=== PATIENT | female | born 2000 | race Caucasian/White ===

== ENCOUNTER 2022-10-10 13:08 | Emergency (ER) | payer SELFPAY ==
[2022-10-10 14:01] VITALS: BP 109/61; PULSE 82; RESP 18; BMI 28.3
[2022-10-10] MEDS ORDERED: LACTATED RINGERS SOLUTION 1000 ML INFUS.BAG IV ONE (14:06)
[2022-10-10 14:15] VITALS: TEMP 97.8
[2022-10-10] MEDS ORDERED: KETOROLAC TROMETHAMINE 15 MG/ML VIAL IVPUSH ONE (14:48)
[2022-10-10] MEDS ORDERED: METOCLOPRAMIDE HCL INJECTION 10 MG/2 ML VIAL IVPUSH ONE (14:48)
[2022-10-10] MEDS ORDERED: METOCLOPRAMIDE HCL INJECTION 10 MG/2 ML VIAL ONE (15:08)
[2022-10-10] MEDS ORDERED: KETOROLAC TROMETHAMINE 15 MG/ML VIAL ONE (15:08)
[2022-10-10 15:46] LABS: BASO % 0.5 % (0-2.0); EOS % 4.4 % (0-4.5); HEMATOCRIT 41.1 % (32.4-45.2); HEMOGLOBIN 13.6 GM/dL (10.7-15.3); LYMPH % 25.2 % (8-40); MCH 28.8 pg (25.7-33.7); MEAN CELL VOLUME 87.4 fl (80-96); MEAN PLT VOLUME 9.2 fl (7.5-11.1); MONO % 4.5 % (3.8-10.2); NEUT % 65.4 % (42.8-82.8); PLATELET COUNT 302 10^3/uL (134-434); RBC 4.71 M/mm3 (3.60-5.2); RDW 13.3 % (11.6-15.6); WHITE BLOOD COUNT 7.2 K/mm3 (4.0-10.0)
[2022-10-10 16:15] LABS: CALCIUM 9.4 mg/dL (8.5-10.1)
[2022-10-10 16:16] LABS: ALBUMIN 3.9 g/dl (3.4-5.0); BLOOD UREA NITROGEN 7.8 mg/dL (7-18)
[2022-10-10 16:19] LABS: CREATININE 0.5 mg/dL (0.55-1.3)
[2022-10-10 16:20] LABS: BILIRUBIN,TOTAL 0.3 mg/dL (0.2-1); TOT PROT 7.4 g/dl (6.4-8.2)
== END 2022-10-10 17:51 | disposition home or self-care (01) ==
LOC: JER 13:08
PROC: 3E0333Z Introduction of Anti-inflammatory into Peripheral Vein, Percutaneous Approach (ICD-10-PCS; principal; 2022-10-10)
PROC: 3E033GC Introduction of Other Therapeutic Substance into Peripheral Vein, Percutaneous Approach (ICD-10-PCS; 2022-10-10)
DX: R51.9 Headache, unspecified (principal)
CPT/HCPCS: 0241U-QW; 36415; 70450-TC; 80053; 84703; 85025; 99284-25

== ENCOUNTER 2023-01-20 20:16 | Inpatient (IN) | payer OTHER ==
[2023-01-20] MEDS ORDERED: ALBUTEROL SO4 2.5/IPRATROPIUM 0.5 INH SOL 3 ML VIAL.NEB. NEB ONE ×4 (20:28→22:31)
[2023-01-20] MEDS ORDERED: MAGNESIUM SULF 50% (8.12 MEQ/2 ML-1 GM VIAL) IVPB ONE (20:31)
[2023-01-20] MEDS ORDERED: methylPREDNISolone NA SUCC 125 MG/2 ML VIAL IVPB ONE (20:31)
[2023-01-20] MEDS ORDERED: methylPREDNISolone NA SUCC 125 MG/2 ML VIAL ONE (21:05)
[2023-01-20] MEDS ORDERED: MAGNESIUM SULFATE IN WATER 2 GM/50 ML IVPB IVPB ONE (21:05)
[2023-01-20 22:10] LABS: BASO % 0.4 % (0-2.0); EOS % 4.3 % (0-4.5); HEMATOCRIT 38.3 % (32.4-45.2); HEMOGLOBIN 13.2 GM/dL (10.7-15.3); LYMPH % 15.8 % (8-40); MCH 28.9 pg (25.7-33.7); MCHC 34.6 g/dl (32.0-36.0); MEAN CELL VOLUME 83.5 fl (80-96); MEAN PLT VOLUME 8.6 fl (7.5-11.1); NEUT % 74.5 % (42.8-82.8); PLATELET COUNT 262 10^3/uL (134-434); RBC 4.59 M/mm3 (3.60-5.2); RDW 13.6 % (11.6-15.6)
[2023-01-20 22:24] LABS: CHLORIDE 107 mmol/L (98-107); SODIUM 138 mmol/L (136-145)
[2023-01-20 22:26] LABS: CALCIUM 8.4 mg/dL (8.5-10.1)
[2023-01-20 22:27] LABS: ALBUMIN 3.7 g/dl (3.4-5.0); BLOOD UREA NITROGEN 6.3 mg/dL (7-18); CO2 22 mmol/L (21-32); GLUCOSE,RANDOM 125 mg/dL (74-106)
[2023-01-20 22:30] LABS: CREATININE 0.6 mg/dL (0.55-1.3); SGOT/AST 19 U/L (15-37); SGPT/ALT 25 U/L (13-61)
[2023-01-20 22:31] LABS: BILIRUBIN,TOTAL 0.4 mg/dL (0.2-1)
[2023-01-20 22:32] LABS: TOT PROT 7.2 g/dl (6.4-8.2)
[2023-01-20 22:33] LABS: ALK PHOS 131 U/L (45-117)
[2023-01-20] MEDS ORDERED: ALBUTEROL SO4 0.083% IH SOL 2.5 MG/3 ML VIAL.NEB. NEB ONE ×2 (22:33→22:36)
[2023-01-20] MEDS: ALBUTEROL SO4 0.083% IH SOL 2.5 MG/3 ML VIAL.NEB. NEB SCH ×4 (22:36→23:15)
[2023-01-20 22:40] LABS: ANION GAP 8 MMOL/L (8-16)
[2023-01-20] MEDS ORDERED: POTASSIUM CHLORIDE ORAL LIQUID 20 MEQ/15 ML PO ONE (22:44)
[2023-01-20] MEDS ORDERED: POTASSIUM CHLORIDE ORAL LIQUID 20 MEQ/15 ML ONE (23:16)
[2023-01-20] MEDS ORDERED: KCL 10 MEQ IVPB 10 MEQ/100 ML INFUS.BAG IVPB ONE (23:16)
[2023-01-20] MEDS: KCL 10 MEQ IVPB 10 MEQ/100 ML INFUS.BAG IVPB SCH (23:26)
[2023-01-21 00:25] LABS: PHOSPHOROUS 2.4 mg/dL (2.5-4.9)
[2023-01-21] MEDS ORDERED: ALBUTEROL SO4 HFA INHALER IH PRN (00:28)
[2023-01-21 00:45] LABS: MAGNESIUM 1.8 mg/dL (1.8-2.4)
[2023-01-21 00:48] LABS: URINE APPEARANCE CLEAR; URINE BILIRUBIN NEGATIVE (NEGATIVE); URINE COLOR YELLOW; URINE GLUCOSE (UA) 2+ (NEGATIVE); URINE KETONE 2+ (NEGATIVE); URINE LEUK ESTERASE NEGATIVE (NEGATIVE); URINE NITRITE NEGATIVE (NEGATIVE); URINE PROTEIN NEGATIVE (NEGATIVE); URINE UROBILINOGEN 0.2 mg/dL (0.2-1.0)
[2023-01-21] MEDS ORDERED: KCL 10 MEQ IVPB 10 MEQ/100 ML INFUS.BAG IVPB ONE (01:05)
[2023-01-21] MEDS: KCL 10 MEQ IVPB 10 MEQ/100 ML INFUS.BAG IVPB SCH ×2 (01:30→02:30)
[2023-01-21] MEDS ORDERED: NAPH,MB-DB/K PH,MBDB POWDER PACKET ONE (01:33)
[2023-01-21] MEDS ORDERED: guaiFENesin 200 MG/10 ML 10 ML UNIT-DOSE CUPS PO ONE (01:38)
[2023-01-21] MEDS ORDERED: guaiFENesin/CODEINE 10 ML UNIT-DOSE CUPS ONE (01:42)
[2023-01-21] MEDS: NAPH,MB-DB/K PH,MBDB POWDER PACKET PO SCH ×3 (02:31→21:56)
[2023-01-21 03:42] VITALS: BMI 28.9
[2023-01-21 07:45] LABS: HEMOGLOBIN 12.8 GM/dL (10.7-15.3); MCH 29.2 pg (25.7-33.7); MCHC 34.7 g/dl (32.0-36.0); MEAN CELL VOLUME 83.9 fl (80-96); MEAN PLT VOLUME 8.7 fl (7.5-11.1); PLATELET COUNT 271 10^3/uL (134-434); RBC 4.41 M/mm3 (3.60-5.2); RDW 13.7 % (11.6-15.6)
[2023-01-21 07:59] LABS: BLOOD UREA NITROGEN 5.3 mg/dL (7-18); CALCIUM 8.8 mg/dL (8.5-10.1); MAGNESIUM 2.4 mg/dL (1.8-2.4)
[2023-01-21 08:00] LABS: ALBUMIN 3.7 g/dl (3.4-5.0)
[2023-01-21] MEDS ORDERED: IPRATROPIUM BR 0.02% 0.5 MG/2.5 ML VIAL.NEB. NEB PRN (08:00)
[2023-01-21 08:04] LABS: BILIRUBIN,TOTAL 0.4 mg/dL (0.2-1); CREATININE 0.6 mg/dL (0.55-1.3); PHOSPHOROUS 2.3 mg/dL (2.5-4.9); TOT PROT 7.4 g/dl (6.4-8.2)
[2023-01-21] MEDS: LEVALBUTEROL HCL 0.31 MG/3 ML VIAL.NEB IH SCH ×3 (08:33→20:24)
[2023-01-21] MEDS: ENOXAPARIN NA (PORCINE) 40 MG/0.4 ML DISP.SYRIN SQ SCH (10:06)
[2023-01-21] MEDS ORDERED: ACETAMINOPHEN 325 MG TABLET (FP) PO ONE ×2 (10:55→18:20)
[2023-01-21] MEDS: BUDESONIDE/FORMETEROL FUMARATE 80/4.5 mcg INHALER IH SCH (11:13)
[2023-01-21] MEDS: guaiFENesin 200 MG/10 ML 10 ML UNIT-DOSE CUPS PO PRN (11:13)
[2023-01-21] MEDS: predniSONE 20 MG TABLET (UD) PO SCH (21:56)
[2023-01-22 07:21] LABS: HEMATOCRIT 37.6 % (32.4-45.2); HEMOGLOBIN 13.1 GM/dL (10.7-15.3); MCH 29.4 pg (25.7-33.7); MCHC 34.9 g/dl (32.0-36.0); MEAN CELL VOLUME 84.4 fl (80-96); MEAN PLT VOLUME 8.8 fl (7.5-11.1); PLATELET COUNT 273 10^3/uL (134-434); RBC 4.45 M/mm3 (3.60-5.2); RDW 14.2 % (11.6-15.6); WHITE BLOOD COUNT 9.2 K/mm3 (4.0-10.0)
[2023-01-22 07:49] LABS: ALBUMIN 3.6 g/dl (3.4-5.0); BLOOD UREA NITROGEN 9.6 mg/dL (7-18); CALCIUM 8.8 mg/dL (8.5-10.1)
[2023-01-22 07:52] LABS: CREATININE 0.5 mg/dL (0.55-1.3); MAGNESIUM 2.2 mg/dL (1.8-2.4); PHOSPHOROUS 3.4 mg/dL (2.5-4.9)
[2023-01-22 07:54] LABS: TOT PROT 7.5 g/dl (6.4-8.2)
[2023-01-22 07:55] LABS: BILIRUBIN,TOTAL 0.3 mg/dL (0.2-1)
[2023-01-22] MEDS: LEVALBUTEROL HCL 0.31 MG/3 ML VIAL.NEB IH SCH ×3 (08:00→20:19)
[2023-01-22] MEDS: BUDESONIDE/FORMETEROL FUMARATE 80/4.5 mcg INHALER IH SCH (09:38)
[2023-01-22] MEDS: NAPH,MB-DB/K PH,MBDB POWDER PACKET PO SCH (09:38)
[2023-01-22] MEDS: predniSONE 20 MG TABLET (UD) PO SCH (09:38)
[2023-01-22] MEDS: ENOXAPARIN NA (PORCINE) 40 MG/0.4 ML DISP.SYRIN SQ SCH (09:38)
[2023-01-22 15:28] VITALS: TEMP 98.2
[2023-01-22] MEDS: guaiFENesin 200 MG/10 ML 10 ML UNIT-DOSE CUPS PO PRN (16:06)
[2023-01-22 18:16] VITALS: BP 122/65; PULSE 88; RESP 20
== END 2023-01-22 20:23 | disposition home or self-care (01) | DRG 141 ==
LOC: JER 20:16 → JERBED 23:50 → INTOOBSV 23:50 → J4W 01-21 02:21 → OBSVTOIN 01-21 13:46
PROVIDERS: ADMIT Internal Medicine; ATTEND Internal Medicine
DX: J45.41 Moderate persistent asthma with (acute) exacerbation (principal); E87.6 Hypokalemia; E83.39 Other disorders of phosphorus metabolism; D72.829 Elevated white blood cell count, unspecified; R73.9 Hyperglycemia, unspecified
CPT/HCPCS: 0241U-QW; 36415; 71045-TC-FY; 71250-TC; 80053; 81003; 83036; 83735; 84100; 84703; 85025; 85027; 87633; 93005; 93010; 94150; 99285-25; G0378

== ENCOUNTER 2023-07-27 19:22 | Observation (INO) | payer OTHER ==
[2023-07-27] MEDS ORDERED: ACETAMINOPHEN 1000 MG/100 ML BAG IVPB ONE (21:04)
[2023-07-27] MEDS ORDERED: SODIUM CHLORIDE 0.9% 1000 ML INFUS.BAG IV ONE (21:04)
[2023-07-27] MEDS ORDERED: METOCLOPRAMIDE HCL INJECTION 10 MG/2 ML VIAL IVPUSH ONE (21:04)
[2023-07-27] MEDS ORDERED: ACETAMINOPHEN INJECTION 100 ML IVPB ONE (21:11)
[2023-07-27] MEDS ORDERED: METOCLOPRAMIDE HCL INJECTION 10 MG/2 ML VIAL ONE (21:11)
[2023-07-27 21:31] LABS: BASO % 0.2 % (0-2.0); EOS % 0.2 % (0-4.5); HEMATOCRIT 43.1 % (32.4-45.2); HEMOGLOBIN 15.1 GM/dL (10.7-15.3); MCHC 34.9 g/dl (32.0-36.0); MONO % 4.5 % (3.8-10.2); NEUT % 89.1 % (42.8-82.8); PLATELET COUNT 285 10^3/uL (134-434); RBC 5.19 M/mm3 (3.60-5.2); RDW 14.6 % (11.6-15.6); WHITE BLOOD COUNT 19.2 K/mm3 (4.0-10.0)
[2023-07-27 21:34] LABS: EPI CELLS 14 /uL (0-25.1); HYALINE CASTS 1 /uL (0-3.1); PH,URINE 6.5 (5.0-8.0); URINE APPEARANCE CLEAR; URINE BACTERIA 278 /uL (0-1359); URINE BILIRUBIN NEGATIVE (NEGATIVE); URINE COLOR DK YELLOW; URINE GLUCOSE (UA) NEGATIVE (NEGATIVE); URINE KETONE 3+ (NEGATIVE); URINE LEUK ESTERASE TRACE (NEGATIVE); URINE NITRITE NEGATIVE (NEGATIVE); URINE PROTEIN NEGATIVE (NEGATIVE); URINE WBC 11 /uL (0-25.8)
[2023-07-27 21:42] LABS: POTASSIUM 3.6 mmol/L (3.5-5.1)
[2023-07-27 21:47] LABS: ALBUMIN 4.3 g/dl (3.4-5.0); BLOOD UREA NITROGEN 8.3 mg/dL (7-18); CALCIUM 9.3 mg/dL (8.5-10.1)
[2023-07-27 21:50] LABS: BILIRUBIN,TOTAL 0.9 mg/dL (0.2-1); CREATININE 0.9 mg/dL (0.55-1.3)
[2023-07-27 21:53] LABS: TOT PROT 8.6 g/dl (6.4-8.2)
[2023-07-27] MEDS ORDERED: CEFTRIAXONE 1 GM in DEXTROSE 5%-WATER - 100 ML IVPB ONE (23:53)
[2023-07-28] MEDS ORDERED: CEFTRIAXONE 1 GM/50 ML BAG ONE (00:06)
[2023-07-28] MEDS ORDERED: SODIUM CHLORIDE 1,000 ML IV STA ×3 (05:35→08:47)
[2023-07-28] MEDS ORDERED: SODIUM CHLORIDE 2,000 ML IV STA (05:41)
[2023-07-28] MEDS ORDERED: ACETAMINOPHEN 325 MG TABLET (FP) PO ONE (05:43)
[2023-07-28] MEDS ORDERED: SODIUM CHLORIDE 1,000 ML IV SCH ×2 (05:45→07:45)
[2023-07-28] MEDS: ALBUTEROL SO4 2.5/IPRATROPIUM 0.5 INH SOL 3 ML VIAL.NEB. NEB SCH ×4 (07:58→20:40)
[2023-07-28] MEDS ORDERED: ALBUTEROL SO4 2.5/IPRATROPIUM 0.5 INH SOL 3 ML VIAL.NEB. NEB ONE (08:17)
[2023-07-28] MEDS ORDERED: methylPREDNISolone NA SUCC 40 MG/1 ML VIAL ONE (08:17)
[2023-07-28] MEDS ORDERED: AZITHROMYCIN IVPB 500 MG/250 ML BAG IVPB ONE (08:17)
[2023-07-28] MEDS: methylPREDNISolone NA SUCC 40 MG/1 ML VIAL IVPUSH SCH ×3 (08:31→22:06)
[2023-07-28] MEDS: AZITHROMYCIN IVPB 500 MG/250 ML BAG IVPB SCH (09:25)
[2023-07-28] MEDS: BUDESONIDE/FORMETEROL FUMARATE 80/4.5 mcg INHALER IH SCH ×2 (11:17→22:05)
[2023-07-28 12:52] VITALS: BMI 31.1
[2023-07-28 21:01] LABS: HEMATOCRIT 35.2 % (32.4-45.2); HEMOGLOBIN 12.2 GM/dL (10.7-15.3); MCHC 34.5 g/dl (32.0-36.0); MEAN CELL VOLUME 83.9 fl (80-96); MEAN PLT VOLUME 9.1 fl (7.5-11.1); PLATELET COUNT 209 10^3/uL (134-434); RDW 14.5 % (11.6-15.6); WHITE BLOOD COUNT 13.4 K/mm3 (4.0-10.0)
[2023-07-29] MEDS ORDERED: CEFTRIAXONE 1 GM in DEXTROSE 5%-WATER - 50 ML IVPB SCH
[2023-07-29] MEDS: methylPREDNISolone NA SUCC 40 MG/1 ML VIAL IVPUSH SCH ×3 (04:01→15:16)
[2023-07-29] MEDS: ALBUTEROL SO4 2.5/IPRATROPIUM 0.5 INH SOL 3 ML VIAL.NEB. NEB SCH ×3 (07:57→16:00)
[2023-07-29] MEDS ORDERED: ACETAMINOPHEN 1000 MG/100 ML BAG IVPB PRN (08:38)
[2023-07-29] MEDS: AZITHROMYCIN IVPB 500 MG/250 ML BAG IVPB SCH (09:08)
[2023-07-29] MEDS: BUDESONIDE/FORMETEROL FUMARATE 80/4.5 mcg INHALER IH SCH (09:10)
[2023-07-29 09:17] LABS: HEMATOCRIT 36.8 % (32.4-45.2); HEMOGLOBIN 12.2 GM/dL (10.7-15.3); MCH 28.5 pg (25.7-33.7); MCHC 33.2 g/dl (32.0-36.0); MEAN CELL VOLUME 85.8 fl (80-96); MEAN PLT VOLUME 8.9 fl (7.5-11.1); PLATELET COUNT 218 10^3/uL (134-434); RBC 4.29 M/mm3 (3.60-5.2); RDW 14.6 % (11.6-15.6); WHITE BLOOD COUNT 17.5 K/mm3 (4.0-10.0)
[2023-07-29 09:42] LABS: POTASSIUM 3.8 mmol/L (3.5-5.1)
[2023-07-29 09:44] VITALS: RESP 18
[2023-07-29 09:45] LABS: CALCIUM 8.7 mg/dL (8.5-10.1)
[2023-07-29 09:47] LABS: BLOOD UREA NITROGEN 8.1 mg/dL (7-18); MAGNESIUM 2.2 mg/dL (1.8-2.4)
[2023-07-29 09:49] LABS: CREATININE 0.7 mg/dL (0.55-1.3); PHOSPHOROUS 2.4 mg/dL (2.5-4.9)
[2023-07-29 09:50] LABS: BILIRUBIN,TOTAL 0.5 mg/dL (0.2-1); TOT PROT 6.9 g/dl (6.4-8.2)
[2023-07-29 10:02] LABS: ALBUMIN 3.1 g/dl (3.4-5.0)
[2023-07-29 10:08] LABS: ANISOCYTOSIS 0; HELMET CELLS 0; HOWELL-JOLLY BODIES 0; MACROCYTOSIS 0; OVALOCYTE 0; ROULEAU 0; SICKELED CELLS 0; TARGET CELLS 0; TEAR DROP CELLS 0; TOXIC GRANULATION 0
[2023-07-29 15:01] VITALS: BP 115/67; PULSE 93; TEMP 97.3
== END 2023-07-29 17:10 | disposition home or self-care (01) ==
LOC: JERFT 19:22 → JER 19:22 → JERBED 23:59 → J7W 07-28 11:35
PROVIDERS: ADMIT Internal Medicine
PROC: 3E0F7GC Introduction of Other Therapeutic Substance into Respiratory Tract, Via Natural or Artificial Opening (ICD-10-PCS; principal; 2023-07-27)
PROC: 3E033NZ Introduction of Analgesics, Hypnotics, Sedatives into Peripheral Vein, Percutaneous Approach (ICD-10-PCS; 2023-07-27)
PROC: 3E03329 Introduction of Other Anti-infective into Peripheral Vein, Percutaneous Approach (ICD-10-PCS; 2023-07-27)
PROC: 3E033GC Introduction of Other Therapeutic Substance into Peripheral Vein, Percutaneous Approach (ICD-10-PCS; 2023-07-27)
PROC: 3E0337Z Introduction of Electrolytic and Water Balance Substance into Peripheral Vein, Percutaneous Approach (ICD-10-PCS; 2023-07-27)
DX: J45.41 Moderate persistent asthma with (acute) exacerbation (principal); J18.9 Pneumonia, unspecified organism; E86.0 Dehydration; G43.909 Migraine, unspecified, not intractable, without status migrainosus; R07.0 Pain in throat; R05.9 Cough, unspecified; R50.9 Fever, unspecified; R53.1 Weakness
CPT/HCPCS: 0241U-QW; 36415; 71046-TC-FY; 71250-TC; 74176-TC; 80053; 81003; 82150; 83605; 83690; 83735; 84100; 84703; 85025; 85027; 87040; 87086; 93005; 93010; 94640; 96361; 96365; 96367; 96368; 96375; 96376; 99285-25; G0378

== ENCOUNTER 2023-11-01 16:04 | Emergency (ER) | payer OTHER ==
[2023-11-01 16:10] VITALS: BP 108/67; PULSE 92; RESP 18; TEMP 97.6; BMI 30.9
[2023-11-01] MEDS ORDERED: ACETAMINOPHEN 500 MG TABLET (FP) PO ONE (18:14)
[2023-11-01] MEDS ORDERED: ACETAMINOPHEN 500 MG TABLET (FP) ONE (18:19)
[2023-11-01 18:21] LABS: HCG,QUALITATIVE URINE Negative
[2023-11-01 18:22] LABS: EPI CELLS 15 /uL (0-25.1); HYALINE CASTS 1 /uL (0-3.1); PH,URINE 6.5 (5.0-8.0); URINE APPEARANCE CLEAR; URINE BACTERIA >9,000 /uL (0-1359); URINE BILIRUBIN NEGATIVE (NEGATIVE); URINE COLOR YELLOW; URINE GLUCOSE (UA) NEGATIVE (NEGATIVE); URINE KETONE NEGATIVE (NEGATIVE); URINE LEUK ESTERASE 2+ (NEGATIVE); URINE NITRITE NEGATIVE (NEGATIVE); URINE PROTEIN TRACE (NEGATIVE); URINE RBC 23 /uL (0-23.9); URINE WBC 744 /uL (0-25.8)
[2023-11-01] MEDS ORDERED: SULFAMETHOXAZOLE/TRIMETHOPRIM 800MG/160MG D.S. TABLET PO ONE (19:59)
[2023-11-01] MEDS ORDERED: IBUPROFEN 600 MG TABLET (FP) PO ONE ×2 (20:02→20:10)
[2023-11-01] MEDS ORDERED: SULFAMETHOXAZOLE/TRIMETHOPRIM 800MG/160MG D.S. TABLET ONE (20:10)
== END 2023-11-01 20:20 | disposition home or self-care (01) ==
LOC: JER 16:04 → JERFT 16:04
DX: R30.0 Dysuria (principal); M54.9 Dorsalgia, unspecified; N39.0 Urinary tract infection, site not specified
CPT/HCPCS: 36415; 81003; 84703; 87086; 87186; 87491; 87591; 99283-25

== ENCOUNTER 2024-08-06 09:03 | Emergency (ER) | payer SELFPAY ==
[2024-08-06 09:11] VITALS: BP 108/68; PULSE 87; RESP 20; TEMP 97.8; BMI 26.5
[2024-08-06] MEDS ORDERED: DEXAMETHASONE SOD PHOSPHATE 10 MG/1 ML VIAL ONE ×2 (09:55→09:57)
[2024-08-06] MEDS ORDERED: ALBUTEROL SO4 2.5/IPRATROPIUM 0.5 INH SOL 3 ML VIAL.NEB. NEB ONE ×3 (09:55→11:29)
[2024-08-06] MEDS: DEXAMETHASONE SOD PHOSPHATE 10 MG/1 ML VIAL IM ONE (09:57)
[2024-08-06] MEDS: ALBUTEROL SO4 2.5/IPRATROPIUM 0.5 INH SOL 3 ML VIAL.NEB. NEB ONE ×2 (09:57→11:52)
[2024-08-06] MEDS ORDERED: MONTELUKAST NA 10 MG TABLET ONE ×2 (10:51→10:54)
[2024-08-06] MEDS: MONTELUKAST NA 10 MG TABLET PO ONE ×2 (11:13→11:16)
== END 2024-08-06 12:36 | disposition home or self-care (01) ==
LOC: JER 09:03
PROC: 3E023GC Introduction of Other Therapeutic Substance into Muscle, Percutaneous Approach (ICD-10-PCS; principal; 2024-08-06)
PROC: 3E0F7GC Introduction of Other Therapeutic Substance into Respiratory Tract, Via Natural or Artificial Opening (ICD-10-PCS; 2024-08-06)
PROC: 3E0F7GC Introduction of Other Therapeutic Substance into Respiratory Tract, Via Natural or Artificial Opening (ICD-10-PCS; 2024-08-06)
DX: J45.901 Unspecified asthma with (acute) exacerbation (principal); R07.89 Other chest pain; R05.9 Cough, unspecified
CPT/HCPCS: 71046-TC-FY; 99284-25; J1100

== ENCOUNTER 2024-09-23 15:18 | Emergency (ER) | payer OTHER ==
[2024-09-23 15:27] VITALS: TEMP 98.5; BMI 29.2
[2024-09-23] MEDS ORDERED: ALBUTEROL SO4 2.5/IPRATROPIUM 0.5 INH SOL 3 ML VIAL.NEB. NEB PRN (15:44)
[2024-09-23] MEDS ORDERED: ALBUTEROL SO4 2.5/IPRATROPIUM 0.5 INH SOL 3 ML VIAL.NEB. NEB ONE (15:53)
[2024-09-23] MEDS ORDERED: predniSONE 10 MG TABLET (UD) ONE (15:54)
[2024-09-23] MEDS ORDERED: predniSONE 20 MG TABLET (UD) ONE (15:54)
[2024-09-23] MEDS: ALBUTEROL SO4 2.5/IPRATROPIUM 0.5 INH SOL 3 ML VIAL.NEB. NEB PRN (16:04)
[2024-09-23] MEDS: predniSONE 20 MG TABLET (UD) PO ONE (16:04)
[2024-09-23] MEDS: ALBUTEROL SO4 2.5/IPRATROPIUM 0.5 INH SOL 3 ML VIAL.NEB. NEB ONE (16:05)
[2024-09-23] MEDS ORDERED: ALBUTEROL SO4 0.083% IH SOL 2.5 MG/3 ML VIAL.NEB. NEB ONE (17:30)
[2024-09-23] MEDS ORDERED: MAGNESIUM SULF 50% (8.12 MEQ/2 ML-1 GM VIAL) ONE (17:30)
[2024-09-23] MEDS ORDERED: guaiFENesin/CODEINE 10 ML UNIT-DOSE CUPS ONE (17:34)
[2024-09-23] MEDS ORDERED: MAGNESIUM SULFATE IN WATER 2 GM/50 ML IVPB IVPB ONE (17:35)
[2024-09-23] MEDS: MAGNESIUM SULF 50% (8.12 MEQ/2 ML-1 GM VIAL) IVPB ONE (18:05)
[2024-09-23] MEDS: guaiFENesin 200 MG/10 ML 10 ML UNIT-DOSE CUPS PO ONE (18:05)
[2024-09-23] MEDS: ALBUTEROL SO4 0.083% IH SOL 2.5 MG/3 ML VIAL.NEB. NEB ONE (18:05)
[2024-09-23 18:18] LABS: BASO % 0.2 % (0-2.0); EOS % 12.6 % (0-4.5); HEMATOCRIT 40.9 % (32.4-45.2); HEMOGLOBIN 13.6 GM/dL (10.7-15.3); LYMPH % 14.4 % (8-40); MCH 28.5 pg (25.7-33.7); MCHC 33.2 g/dl (32.0-36.0); MEAN CELL VOLUME 85.9 fl (80-96); MEAN PLT VOLUME 8.8 fl (7.5-11.1); MONO % 3.7 % (3.8-10.2); NEUT % 69.1 % (42.8-82.8); PLATELET COUNT 245 10^3/uL (134-434); RBC 4.76 M/mm3 (3.60-5.2); RDW 13.9 % (11.6-15.6); WHITE BLOOD COUNT 8.7 K/mm3 (4.0-10.0)
[2024-09-23 18:19] LABS: VENOUS BASE EXCESS -1.6 mmol/L (-2-2); VENOUS O2 SATURATION 73.7 % (70-80); VENOUS PCO2 40.4 mmHg (38-52); VENOUS PH 7.38 (7.310-7.410)
[2024-09-23 18:37] LABS: POTASSIUM 3.4 mmol/L (3.5-5.1)
[2024-09-23 18:40] LABS: CALCIUM 9.1 mg/dL (8.5-10.1)
[2024-09-23 18:41] LABS: BLOOD UREA NITROGEN 6.6 mg/dL (7-18)
[2024-09-23 18:44] LABS: CREATININE 0.6 mg/dL (0.55-1.3)
[2024-09-23 18:47] LABS: BILIRUBIN,TOTAL 0.3 mg/dL (0.2-1); TOT PROT 7.7 g/dl (6.4-8.2)
[2024-09-23 19:32] LABS: HIV INTERPRETATION NEGATIVE (NEGATIVE)
[2024-09-23 20:38] VITALS: BP 102/70; PULSE 110; RESP 16
== END 2024-09-23 20:40 | disposition home or self-care (01) ==
LOC: JER 15:18
PROC: 3E033GC Introduction of Other Therapeutic Substance into Peripheral Vein, Percutaneous Approach (ICD-10-PCS; principal; 2024-09-23)
PROC: 3E0F7GC Introduction of Other Therapeutic Substance into Respiratory Tract, Via Natural or Artificial Opening (ICD-10-PCS; 2024-09-23)
DX: J45.901 Unspecified asthma with (acute) exacerbation (principal); R06.02 Shortness of breath; R05.9 Cough, unspecified; R50.9 Fever, unspecified; J02.9 Acute pharyngitis, unspecified; Z20.822 Contact with and (suspected) exposure to COVID-19
CPT/HCPCS: 0241U-QW; 36415; 71046-TC-FY; 80053; 82803; 84703; 85025; 86803; 87389; 99284-25

== ENCOUNTER 2024-12-17 18:46 | Inpatient (IN) | payer OTHER ==
[2024-12-17] MEDS ORDERED: DEXAMETHASONE SOD PHOSPHATE 4 MG/1 ML VIAL ONE ×2 (20:14→20:21)
[2024-12-17] MEDS ORDERED: ALBUTEROL SO4 2.5/IPRATROPIUM 0.5 INH SOL 3 ML VIAL.NEB. NEB ONE ×3 (20:14→23:15)
[2024-12-17] MEDS ORDERED: LORATADINE 10 MG TABLET ONE ×2 (20:14→20:21)
[2024-12-17] MEDS ORDERED: DEXAMETHASONE SOD PHOSPHATE 10 MG/1 ML VIAL ONE ×2 (20:14→20:23)
[2024-12-17] MEDS: ALBUTEROL SO4 2.5/IPRATROPIUM 0.5 INH SOL 3 ML VIAL.NEB. NEB ONE ×2 (20:23→23:14)
[2024-12-17] MEDS: DEXAMETHASONE SOD PHOSPHATE 10 MG/1 ML VIAL IM ONE (20:23)
[2024-12-17] MEDS: LORATADINE 10 MG TABLET PO ONE (20:23)
[2024-12-17] MEDS ORDERED: MAGNESIUM SULFATE IN WATER 2 GM/50 ML IVPB IVPB ONE (21:49)
[2024-12-17] MEDS: MAGNESIUM SULFATE IN WATER 2 GM/50 ML IVPB IVPB ONE (22:07)
[2024-12-18 01:28] LABS: HEMATOCRIT 38.3 % (32.4-45.2); MEAN CELL VOLUME 85.3 fl (80-96); MEAN PLT VOLUME 8.5 fl (7.5-11.1); PLATELET COUNT 248 10^3/uL (134-434); RBC 4.49 M/mm3 (3.60-5.2); WHITE BLOOD COUNT 8.4 K/mm3 (4.0-10.0)
[2024-12-18 01:42] LABS: POTASSIUM 3.4 mmol/L (3.5-5.1)
[2024-12-18 01:44] LABS: ALBUMIN 3.9 g/dl (3.4-5.0); BLOOD UREA NITROGEN 12.9 mg/dL (7-18); CALCIUM 8.7 mg/dL (8.5-10.1)
[2024-12-18 01:47] LABS: CREATININE 0.9 mg/dL (0.55-1.3)
[2024-12-18 01:49] LABS: BILIRUBIN,TOTAL 0.2 mg/dL (0.2-1); TOT PROT 7.4 g/dl (6.4-8.2)
[2024-12-18] MEDS ORDERED: ACETAMINOPHEN 325 MG TABLET (FP) ONE (01:51)
[2024-12-18] MEDS: ACETAMINOPHEN 325 MG TABLET (FP) PO ONE (02:03)
[2024-12-18 02:41] LABS: HIV INTERPRETATION NEGATIVE (NEGATIVE)
[2024-12-18 03:09] LABS: ANISOCYTOSIS 1+; MACROCYTOSIS 1+
[2024-12-18 03:10] VITALS: BMI 32.7
[2024-12-18] MEDS: ALBUTEROL SULFATE 0.021% (0.63 MG/3 ML) VIAL.NEB NEB SCH (04:00)
[2024-12-18] MEDS ORDERED: ALBUTEROL SO4 0.083% IH SOL 2.5 MG/3 ML VIAL.NEB. NEB PRN (04:26)
[2024-12-18] MEDS ORDERED: ALBUTEROL SULFATE 0.021% (0.63 MG/3 ML) VIAL.NEB NEB PRN ×2 (04:27→08:54)
[2024-12-18] MEDS: LORATADINE 10 MG TABLET PO SCH (05:34)
[2024-12-18] MEDS: methylPREDNISolone NA SUCC 40 MG/1 ML VIAL IVPUSH SCH ×3 (05:34→21:41)
[2024-12-18] MEDS: POTASSIUM CHLORIDE ORAL LIQUID 20 MEQ/15 ML PO ONE ×2 (05:34→05:47)
[2024-12-18] MEDS: MONTELUKAST NA 5 MG TAB.CHEW PO ONE (06:28)
[2024-12-18] MEDS: ALBUTEROL SO4 2.5/IPRATROPIUM 0.5 INH SOL 3 ML VIAL.NEB. NEB SCH (07:25)
[2024-12-18 09:39] LABS: HEMATOCRIT 38.9 % (32.4-45.2); HEMOGLOBIN 13.4 GM/dL (10.7-15.3); MCHC 34.4 g/dl (32.0-36.0); MEAN CELL VOLUME 84.4 fl (80-96); MEAN PLT VOLUME 8.8 fl (7.5-11.1); PLATELET COUNT 284 10^3/uL (134-434); RBC 4.61 M/mm3 (3.60-5.2); RDW 14.9 % (11.6-15.6); WHITE BLOOD COUNT 10.6 K/mm3 (4.0-10.0)
[2024-12-18] MEDS: ENOXAPARIN NA (PORCINE) 40 MG/0.4 ML DISP.SYRIN SQ SCH (09:39)
[2024-12-18] MEDS: ACETAMINOPHEN 325 MG TABLET (FP) PO PRN (09:41)
[2024-12-18 09:58] LABS: POTASSIUM 4.4 mmol/L (3.5-5.1)
[2024-12-18 10:02] LABS: CALCIUM 9.1 mg/dL (8.5-10.1)
[2024-12-18 10:03] LABS: BLOOD UREA NITROGEN 10.2 mg/dL (7-18)
[2024-12-18 10:06] LABS: BILIRUBIN,TOTAL 0.3 mg/dL (0.2-1); CREATININE 0.6 mg/dL (0.55-1.3); TOT PROT 7.8 g/dl (6.4-8.2)
[2024-12-18] MEDS: guaiFENesin/D-METHORPHAN HB 10 ML UNIT-DOSE CUPS PO PRN (18:48)
[2024-12-18] MEDS: MONTELUKAST NA 5 MG TAB.CHEW PO SCH (21:41)
[2024-12-19] MEDS: IBUPROFEN 400 MG TABLET (FP) PO PRN (07:20)
[2024-12-19] MEDS ORDERED: CODEINE SO4 30 MG TABLET PO PRN (11:20)
[2024-12-19] MEDS: BUDESONIDE/FORMETEROL FUMARATE 160/4.5 mcg INHALER IH ONE (13:20)
[2024-12-19] MEDS: FLUTICASONE PROP 0.05% 16 GM NASAL SPRAY NS SCH (23:01)
[2024-12-20 09:36] LABS: HEMATOCRIT 40.8 % (32.4-45.2); HEMOGLOBIN 13.1 GM/dL (10.7-15.3); MCH 27.8 pg (25.7-33.7); MCHC 32.1 g/dl (32.0-36.0); MEAN CELL VOLUME 86.4 fl (80-96); MEAN PLT VOLUME 8.8 fl (7.5-11.1); PLATELET COUNT 313 10^3/uL (134-434); RBC 4.72 M/mm3 (3.60-5.2); RDW 14.3 % (11.6-15.6); WHITE BLOOD COUNT 15.8 K/mm3 (4.0-10.0)
[2024-12-20 09:55] LABS: BLOOD UREA NITROGEN 15.9 mg/dL (7-18); CALCIUM 8.8 mg/dL (8.5-10.1)
[2024-12-20 09:56] LABS: POTASSIUM 4.1 mmol/L (3.5-5.1)
[2024-12-20 09:59] LABS: CREATININE 0.6 mg/dL (0.55-1.3)
[2024-12-20 13:51] VITALS: BP 103/66; PULSE 85; RESP 18; TEMP 97.2
[2024-12-20] MEDS: ACETAMINOPHEN/CAFFEINE/BUTALBITAL 1 TAB PO ONE (14:22)
== END 2024-12-20 18:57 | disposition home or self-care (01) | DRG 141 ==
LOC: JER 18:46 → JERBED 23:01 → J6S 12-18 02:24 → OBSVTOIN 12-18 03:05
PROVIDERS: ADMIT Internal Medicine; ATTEND Internal Medicine
DX: J45.901 Unspecified asthma with (acute) exacerbation (principal); J45.51 Severe persistent asthma with (acute) exacerbation; E87.6 Hypokalemia; R73.9 Hyperglycemia, unspecified; T38.0X5A Adverse effect of glucocorticoids and synthetic analogues, initial encounter; R00.0 Tachycardia, unspecified; K21.9 Gastro-esophageal reflux disease without esophagitis
CPT/HCPCS: 0241U-QW; 36415; 71046-TC-FY; 80048; 80053; 83036; 84703; 85025; 85027; 86803; 87389; 93005; 93010; 93306-TC; 94150; 94640; 99285-25; G0378; J1100

== ENCOUNTER 2025-04-06 18:54 | Emergency (ER) | payer SELFPAY ==
[2025-04-06 19:12] VITALS: BP 110/63; PULSE 79; RESP 18; TEMP 98; BMI 34.5
[2025-04-06 19:55] LABS: HEMOGLOBIN 12.6 g/dL (11.2-15.7); MCHC 33.2 g/dl (32.2-35.5); MEAN CELL VOLUME 84.6 fl (79.4-94.8); MEAN PLT VOLUME 10.5 fl (9.4-12.3); PLATELET COUNT 260 x10^3/uL (182-369); RDW 14.2 % (12.1-16.5)
[2025-04-06 19:59] LABS: EPI CELLS >36 /uL (0-25.1); HYALINE CASTS 0 /uL (0-3.1); URINE APPEARANCE CLOUDY; URINE BACTERIA 1309 /uL (0-1359); URINE BILIRUBIN NEGATIVE (NEGATIVE); URINE COLOR YELLOW; URINE GLUCOSE (UA) NEGATIVE (NEGATIVE); URINE KETONE TRACE (NEGATIVE); URINE LEUK ESTERASE TRACE (NEGATIVE); URINE NITRITE NEGATIVE (NEGATIVE); URINE PROTEIN TRACE (NEGATIVE); URINE RBC 22 /uL (0-23.9); URINE WBC 58 /uL (0-25.8)
[2025-04-06 20:16] LABS: POTASSIUM 3.8 mmol/L (3.5-5.1)
[2025-04-06 20:18] LABS: CALCIUM 9.4 mg/dL (8.5-10.1)
[2025-04-06 20:19] LABS: ALBUMIN 3.6 g/dl (3.4-5.0); BLOOD UREA NITROGEN 11.4 mg/dL (7-18)
[2025-04-06 20:22] LABS: CREATININE 0.8 mg/dL (0.55-1.3)
[2025-04-06 20:23] LABS: BILIRUBIN,TOTAL 0.3 mg/dL (0.2-1); TOT PROT 7.1 g/dl (6.4-8.2)
[2025-04-07 20:10] LABS: HCV DIAGNOSTIC IN-HOUSE W/RFLX NON-REACTIVE (NONREACTIVE)
[2025-04-07 20:11] LABS: HIV INTERPRETATION NEGATIVE (NEGATIVE)
== END 2025-04-06 21:25 | disposition home or self-care (01) ==
LOC: JERFT 18:54 → JER 18:54 → JERFT 21:25
DX: O26.891 Other specified pregnancy related conditions, first trimester (principal); R10.30 Lower abdominal pain, unspecified; R11.0 Nausea; O23.41 Unspecified infection of urinary tract in pregnancy, first trimester; Z3A.01 Less than 8 weeks gestation of pregnancy
CPT/HCPCS: 36415; 76817-TC; 80053; 81003; 84702; 85027; 86803; 87086; 87389; 99284-25